=== PATIENT | male | born 1955 | race Caucasian/White ===

== ENCOUNTER 2020-06-08 11:07 | Outpatient (REF) | payer MEDICARE, SELFPAY ==
[2020-06-08 12:51] LABS: Prostate Specific Antigen < 0.05 ng/mL (<0.05-4.0)
== END 2020-06-08 11:08 | disposition home or self-care (01) ==
LOC: HO.LAB 11:07
PROVIDERS: PCP Internal Medicine; Visit Provider Urology
DX: Z12.5 Encounter for screening for malignant neoplasm of prostate (principal); C61 Malignant neoplasm of prostate
CPT/HCPCS: 36415; 84153

== ENCOUNTER 2020-08-18 11:42 | Outpatient (REF) | payer MEDICARE, SELFPAY ==
[2020-08-18 12:41] LABS: MANUAL DIFF FLAG NO
[2020-08-18 12:48] LABS: Basophils Percent Auto 0.5 % (0-2); Eosinophils Percent Auto 0.2 % (0-4); Hematocrit 53.3 % (42-52); Imm Gran Abs Auto 0.03 X10*3/uL (0.00-0.03); Imm Gran Pct Auto 0.5 % (0.0-0.4); Lymphocytes Absolute Auto 1.7 X10*3/uL (1.2-4.9); Lymphocytes Percent Auto 29.8 % (20-40); Mean Corpuscular HGB Conc 33.8 g/dl (31.0-36.0); Mean Corpuscular Hemoglobin 31.8 pg (27.0-33.0); Mean Corpuscular Volume 94.2 fL (80-98); Mean Platelet Volume 9.8 fL (9.4-12.4); Monocytes Absolute Auto 0.8 X10*3/uL (0.1-1.2); Monocytes Percent Auto 12.9 % (2-11); Neutrophils Absolute Auto 3.3 X10*3/uL (2.0-8.3); Neutrophils Percent Auto 56.1 % (45-73); Platelet Count 206 X10*3/uL (160-400); Red Blood Count 5.66 X10*6/uL (4.60-5.80); White Blood Count 5.8 X10*3/uL (4.8-10.8)
[2020-08-18 13:20] LABS: Alanine Aminotransferase 60 U/L (0-40); Albumin Level 4.4 g/dL (3.5-5.0); Alkaline Phosphatase 73 U/L (39-117); Anion Gap 16 (12-20); Aspartate Amino Transferase 32 U/L (5-37); Bilirubin Total 0.5 mg/dL (0.0-1.0); Blood Urea Nitrogen 19 mg/dL (9-16); Calcium 9.4 mg/dL (8.4-10.2); Carbon Dioxide 21 mmol/L (22-29); Chloride 109 mmol/L (96-108); Cholesterol 178 mg/dL; Estimated Glomerular Filt Rate 55; Glucose Fasting 106 mg/dL (60-99); HDL Cholesterol 39 mg/dL; LDL Cholesterol Calculated 122 mg/dl; Potassium 4.6 mmol/L (3.3-5.1); Sodium 141 mmol/L (135-145); Total Protein 7.7 g/dL (6.5-8.0); Triglycerides 86 mg/dL
[2020-08-18 13:42] LABS: Thyroid Stimulating Hormone 2.68 uIU/mL (0.32-4.0)
== END 2020-08-18 11:43 | disposition home or self-care (01) ==
LOC: HO.LAB 11:42
PROVIDERS: PCP Internal Medicine; Visit Provider Internal Medicine
DX: Z00.00 Encounter for general adult medical examination without abnormal findings (principal); E11.9 Type 2 diabetes mellitus without complications; E03.9 Hypothyroidism, unspecified
CPT/HCPCS: 36415; 80053; 80061; 84443; 85025

== ENCOUNTER 2021-08-21 10:29 | Outpatient (REF) | payer MEDICARE, SELFPAY ==
[2021-08-21 11:04] LABS: MANUAL DIFF FLAG NO
[2021-08-21 11:41] LABS: Basophils Percent Auto 0.6 % (0-2); Eosinophils Absolute Auto 0.1 X10*3/uL (0.0-0.4); Eosinophils Percent Auto 0.8 % (0-4); Hematocrit 53.8 % (42.0-52.0); Hemoglobin 17.8 g/dl (14.0-18.0); Imm Gran Abs Auto 0.03 X10*3/uL (0.00-0.03); Imm Gran Pct Auto 0.5 % (0.0-0.4); Lymphocytes Absolute Auto 2.3 X10*3/uL (1.2-4.9); Lymphocytes Percent Auto 36.6 % (20-40); Mean Corpuscular HGB Conc 33.1 g/dl (31.0-36.0); Mean Corpuscular Hemoglobin 31.3 pg (27.0-33.0); Mean Corpuscular Volume 94.6 fL (80.0-98.0); Mean Platelet Volume 9.9 fL (9.4-12.4); Monocytes Absolute Auto 0.6 X10*3/uL (0.1-1.2); Monocytes Percent Auto 10.2 % (2-11); Neutrophils Absolute Auto 3.2 x10*3/uL (2.0-8.3); Neutrophils Percent Auto 51.3 % (45-73); Platelet Count 211 X10*3/uL (160-400); Red Blood Count 5.69 X10*6/uL (4.60-5.80); Red Cell Distribution Width 12.4 % (11.0-16.0); White Blood Count 6.3 X10*3/uL (4.8-10.8)
[2021-08-21 12:29] LABS: Alanine Aminotransferase 57 U/L (0-40); Albumin Level 4.3 g/dL (3.5-5.0); Alkaline Phosphatase 76 U/L (39-117); Anion Gap 13 (12-20); Aspartate Amino Transferase 30 U/L (5-37); Bilirubin Total 0.8 mg/dL (0.0-1.0); Blood Urea Nitrogen 15 mg/dL (9-16); Calcium 9.4 mg/dL (8.4-10.2); Carbon Dioxide 23 mmol/L (22-29); Chloride 109 mmol/L (96-108); Cholesterol 196 mg/dL; Estimated Glomerular Filt Rate 53; Glucose Fasting 111 mg/dL (60-99); HDL Cholesterol 35 mg/dL; LDL Cholesterol Calculated 127 mg/dl; Total Protein 7.6 g/dL (6.5-8.0); Triglycerides 171 mg/dL
[2021-08-21 12:46] LABS: Potassium 4.5 mmol/L (3.3-5.1); Prostate Specific Antigen Scr < 0.05 ng/mL (<0.05-4.0); Sodium 142 mmol/L (135-145); Thyroid Stimulating Hormone 2.85 uIU/mL (0.32-4.0)
== END 2021-08-21 10:30 | disposition home or self-care (01) ==
LOC: HO.LAB 10:29
PROVIDERS: PCP Internal Medicine; Visit Provider Internal Medicine
DX: Z00.00 Encounter for general adult medical examination without abnormal findings (principal); Z13.0 Encounter for screening for diseases of the blood and blood-forming organs and certain disorders involving the immune mechanism; Z12.5 Encounter for screening for malignant neoplasm of prostate
CPT/HCPCS: 36415; 80053; 80061; 84153; 84443; 85025

== ENCOUNTER 2022-06-16 10:25 | Outpatient (REF) | payer MEDICARE, SELFPAY ==
--- NOTE | ~2022-06-16 | XR_ITS ---
EXAMINATION: XR ABDOMEN KUB CLINICAL INDICATION: Urinary tract calculi. COMPARISON: CT abdomen and pelvis 01/08/2009. TECHNIQUE: AP x2 views of the abdomen. FINDINGS: There is a faint rounded density possibly a calculus overlying upper medial left renal fossa 0.8 cm size. There is a calcified phlebolith lower right lateral hemipelvis. No visible ureteral calculi. The lung bases are clear. Bowel gas unremarkable. Surgical clips right upper quadrant abdomen from prior cholecystectomy. There are degenerative changes lumbosacral spine. XR/XR KUB IMPRESSION: -Question 8 mm calculus overlying upper medial left renal fossa.
== END 2022-06-16 10:26 | disposition home or self-care (01) ==
LOC: HO.XRAY 10:25
PROVIDERS: PCP Internal Medicine; Visit Provider Physician Assistant Surgical
DX: Z87.442 Personal history of urinary calculi (principal)
CPT/HCPCS: 74018

== ENCOUNTER 2023-02-16 11:03 | Outpatient (AMB) | payer MEDICARE, SELFPAY ==
--- NOTE | 2023-02-16 11:04 | A.OFFPC_ITS ---
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 Engineer Required: No Svp Business Development: Not Required per policy Accompanied by: Self / Same As Patient Allergies perfume Allergy (Unknown, Uncoded 02/16/23 11:05) hard to breath, watery eye Medication List - Last Reconciled 02/16/23 by Lefty Devlin MD No Known Home Meds Tobacco use date assessed: 02/16/23 Fall risk assessment: No Falls in past year Last assessed Fall Risk: 02/16/23 Dental Screening Dental Screen Date: 02/16/23 Did you have a dental visit in the last 12 months?: Yes Did you have a dental problem in the last 6 months where you did not have access to dental care?: No Was dental information given to patient?: Patient has dentist HPI Annual Physical HPI Details healthy [facility] Surgical History History of prostatectomy History of cholecystectomy Family History Father Medical history unknown Mother CVD (cardiovascular disease) Social History Housing: House Alcohol intake: never Patient Tobacco Use Status: Never used Tobacco e-Cigarette/Vaping Use: Never Used Second Hand Smoke Exposure: No service: No Current occupational status: retired Cognitive needs: No Hearing needs: No Vision needs: Yes Questionnaire PHQ-9 Over the last 2 weeks, how often have you been bothered by any of the following problems? 1. Little interest or pleasure in doing things: not at all 2. Feeling down, depressed, or hopeless: not at all 3. Trouble falling or staying asleep, or sleeping too much: not at all 4. Feeling tired or having little energy: not at all 5. Poor appetite or overeating: not at all 6. Feeling bad about yourself - or that you are a failure or have let yourself or your family down: not at all 7. Trouble concentrating on things, such as reading the newspaper or watching television: not at all 8. Moving or speaking so slowly that other people could have noticed. Or the opposite - being so fidgety or restless that you have been moving around a lot more than usual: not at all 9. Thoughts that you would be better off or of hurting yourself in some way: not at all Total score: 0 Depression Screening Interpretation: Negative 80438 - PHQ-9 Billing: Yes Source: Developed by Drs. Werner Alvarez, Diann Humphrey, Flaco Gomes and colleagues, with an educational polo from [employer]. Thrive Questionnaire Date Thrive assessed: 02/16/23 I am a: Patient What is your living situation today?: I have a steady place to live Within the past 12 months, did the food you bought not last and you didn't have the money to get more?: Never true Within the past 12 months, did you worry whether your food would run out before you got money to buy more?: Never true Do you have trouble paying for medicines?: No Do you have trouble getting transportation to medical appointments?: No Do you have trouble paying your heating and electricity bill?: No Do you have trouble taking care of your child, family member or friend?: No Do you have trouble with day-to-day activities such as bathing, preparing meals, shopping, managing finances, etc.?: No Are you currently unemployed and looking for a job?: No Are you interested in more education?: No Please select the resources that you would like help with: None AUDIT C Alcohol Use Questionnaire (AUDIT-C) 1. How often do you have a drink containing alcohol?: Never Total Score: 0 Score Reviewed/Action Taken: Yes WILY-7 AMB Questionnaire WILY-7 Date WILY - 7 assessed: 02/16/23 Feeling nervous, anxious, or on edge: 0 = Not at all Not being able to stop or control worryin = Not at all Worrying too much about different things: 0 = Not at all Trouble relaxin = Not at all Being so restless that it is hard to sit still: 0 = Not at all Becoming easily annoyed or irritable: 0 = Not at all Feeling afraid as if something awful might happen: 0 = Not at all Total WILY-7 score (0-4 normal; 5-9 mild; 10-14 moderate; 15-21 severe): 0 Source: Developed by Drs. Werner Alvarez, Diann Humphrey, Flaco Gomes and colleagues, with an educational polo from [employer]. WILY-7 Assessment Billing WILY-7 Assessment Tool: WILY-7 Assessment 77512 Review of Systems Const Denies chills, Denies fatigue, Denies headache(s) and Denies weight loss Eyes Denies change in vision, Denies diplopia and Denies eye pain ENT Denies vertigo, Denies dizziness, Denies headache(s) and Denies nasal discharge Card Denies chest pain, Denies rapid heart rate and Denies dyspnea on exertion Resp Denies chest congestion, Denies cough, Denies pain with cough and Denies dyspnea on exertion GI Denies abdominal pain, Denies hematochezia and Denies change in bowel habits Musc Denies myalgias, Denies arthralgias and Denies joint swelling Skin/Breast Denies lesions and Denies unusual bruising Neuro Denies vertigo, Denies dizziness, Denies headache(s) and Denies focal weakness Endo Denies fatigue Physical exam (Primary Care) Vital Signs: Last Vital Signs Pulse 62 02/16/23 11:05 BP 112/70 02/16/23 11:05 Pulse Ox 95 02/16/23 11:05 Oxygen Delivery Method Room Air 02/16/23 11:05 BMI result Body Mass Index 30.9 Tobacco/Smoking Status: Tobacco use Status Tobacco use date assessed 02/16/23 02/16/23 11:10 Patient Tobacco Use Status Never used Tobacco 02/16/23 11:10 e-Cigarette/Vaping Use Never Used 02/16/23 11:10 PHQ-9: PHQ-9 Score PHQ-9: Total score 0 02/16/23 11:10 Depression Screening Interpretation: Negative Thrive Assessment: Date of Thrive Assessment Date Thrive assessed 02/16/23 02/16/23 11:10 Advance Care Planning discussion: On file, no changes Forms completed: Health Care Proxy Const General: cooperative, healthy appearing and no acute distress Orientation/consciousness: oriented to person, oriented to place and oriented to time HENMT Head: Yes normal to inspection, Yes normocephalic and Yes atraumatic Mouth: Normal oral and palatal mucosa present and tongue normal Throat: Yes posterior oropharynx normal and Yes uvula midline Eyes General: appearance normal, both eyes and all related structures Neck Neck: Yes normal visual inspection, Yes full ROM and Yes no lymphadenopathy Thyroid: Thyroid normal Carotids: normal carotid upstroke Chest Chest palpation & inspection: normal inspection of the chest Resp Effort & Inspection: normal respiratory effort and able to speak in complete sentences Auscultation: clear to auscultation bilaterally Cardio Jugular venous distension: no JVD Palpation: normal PMI Rate: regular rate Rhythm: regular rhythm Heart sounds: S1 normal heart sound present and S2 normal heart sound present GI Inspection: Yes normal to inspection Palpation (GI): Soft to palpation and No hepatosplenomegaly present Auscultation: normal bowel sounds General: Yes no CVA tenderness Back/Spine/Pelvis Back: no CVA tenderness Skin General skin exam: no rashes or lesions noted Neuro General: oriented to person, oriented to place and oriented to time Extrem General: Yes normal to inspection and Yes full ROM Assessment and Plan Assessment & Plan (1) Physical exam: Code(s): Z00.00 - Encounter for general adult medical examination without abnormal findings Plan: stable; do labs Orders: Orders Thyroid Stimulating Hormone Today E03.9 - Hypothyroidism, unspecified Complete Blood Count Auto Diff Today D64.9 - Anemia, unspecified Lipid Panel Today E78.5 - Hyperlipidemia, unspecified Comprehensive [place]. Panel Fast Today N28.9 - Disorder of kidney and ureter, unspecified Coding Level of Care Code Est Pt Prev Care >65y(93285) Diagnoses Physical exam Z00.00 Additional Codes WILY-7 Assessment Billing - WILY-7 Assessment Tool: WILY-7 Assessment 42677 ([id number]) Vital Signs *Quality* - Advance Care Planning discussion: On file, no changes ([id number])
[2023-02-16 11:05] VITALS: BP 112/70; PULSE 62; O2SAT 95; BMI 30.9
== END 2023-02-16 11:17 | disposition home or self-care (01) ==
PROVIDERS: PCP Internal Medicine; Visit Provider Internal Medicine
DX: Z00.00 Encounter for general adult medical examination without abnormal findings (principal)
CPT/HCPCS: 1123F; 99397

== ENCOUNTER 2023-02-20 11:17 | Outpatient (REF) | payer MEDICARE, SELFPAY ==
[2023-02-20 11:47] LABS: MANUAL DIFF FLAG NO
[2023-02-20 12:01] LABS: Basophils Percent Auto 0.5 % (0-2); Eosinophils Absolute Auto 0.1 X10*3/uL (0.0-0.4); Eosinophils Percent Auto 0.9 % (0-4); Hematocrit 51.1 % (42.0-52.0); Hemoglobin 17.2 g/dl (14.0-18.0); Imm Gran Abs Auto 0.05 X10*3/uL (0.00-0.03); Imm Gran Pct Auto 0.9 % (0.0-0.4); Lymphocytes Absolute Auto 2.3 X10*3/uL (1.2-4.9); Lymphocytes Percent Auto 41.1 % (20-40); Mean Corpuscular HGB Conc 33.7 g/dl (31.0-36.0); Mean Corpuscular Hemoglobin 31.3 pg (27.0-33.0); Mean Corpuscular Volume 93.1 fL (80.0-98.0); Mean Platelet Volume 9.6 fL (9.4-12.4); Monocytes Absolute Auto 0.7 X10*3/uL (0.1-1.2); Monocytes Percent Auto 12.4 % (2-11); Neutrophils Absolute Auto 2.4 x10*3/uL (2.0-8.3); Neutrophils Percent Auto 44.2 % (45-73); Platelet Count 208 X10*3/uL (160-400); Red Blood Count 5.49 X10*6/uL (4.60-5.80); Red Cell Distribution Width 12.4 % (11.0-16.0); White Blood Count 5.5 X10*3/uL (4.8-10.8)
[2023-02-20 13:19] LABS: Alanine Aminotransferase 52 U/L (0-40); Albumin Level 4.2 g/dL (3.5-5.0); Alkaline Phosphatase 66 U/L (39-117); Anion Gap 14 (12-20); Aspartate Amino Transferase 27 U/L (5-37); Bilirubin Total 0.6 mg/dL (0.0-1.0); Blood Urea Nitrogen 23 mg/dL (9-16); Calcium 9.3 mg/dL (8.4-10.2); Carbon Dioxide 21 mmol/L (22-29); Chloride 109 mmol/L (96-108); Cholesterol 174 mg/dL (<200); Estimated Glomerular Filt Rate > 60; Glucose Fasting 123 mg/dL (60-99); HDL Cholesterol 37 mg/dL (>40); LDL Cholesterol Calculated 113 mg/dL (<100); Sodium 140 mmol/L (135-145); Total Protein 7.6 g/dL (6.5-8.0); Triglycerides 124 mg/dL (<150)
[2023-02-20 13:37] LABS: Thyroid Stimulating Hormone 2.97 uIU/mL (0.32-4.0)
== END 2023-02-20 11:18 | disposition home or self-care (01) ==
LOC: HO.LAB 11:17
PROVIDERS: PCP Internal Medicine; Visit Provider Internal Medicine
DX: E78.5 Hyperlipidemia, unspecified (principal); E03.9 Hypothyroidism, unspecified; N28.9 Disorder of kidney and ureter, unspecified; D64.9 Anemia, unspecified
CPT/HCPCS: 36415; 80053; 80061; 84443; 85025

== ENCOUNTER 2023-08-24 09:15 | Outpatient (AMB) | payer MEDICARE, SELFPAY ==
[2023-08-24 09:17] VITALS: BP 110/60; PULSE 65; O2SAT 95; BMI 30.7
--- NOTE | 2023-08-24 09:17 | MHC.PC.OV ---
Vital Signs 08/24/23 09:17 Height 5 ft 7 in Weight 196 lb BMI 30.7 BP 110/60 Blood Pressure Location Lt brachial Position Sitting Pulse 65 Pulse Source Pulse Oximeter Pulse Oximetry (%) 95 Oxygen Delivery Method Room Air Intake Visit Reasons: bump in buttocks Cnc Supervisor Required: No Criminal Investigator Customs: Not Required per policy Accompanied by: Self / Same As Patient Allergies perfume Allergy (Unknown, Uncoded 08/24/23 09:18) hard to breath, watery eye Medication List - Last Reconciled 08/24/23 by Lefty Devlin MD No Known Home Meds Tobacco use date assessed: 08/24/23 Fall risk assessment: 1 Fall in past year Last assessed Fall Risk: 08/24/23 Dental Screening Dental Screen Date: 08/24/23 Did you have a dental visit in the last 12 months?: Yes Did you have a dental problem in the last 6 months where you did not have access to dental care?: No Was dental information given to patient?: Patient has dentist HPI bump in buttocks HPI Details has an external hemorrhoid PFSH Surgical History History of prostatectomy History of cholecystectomy Family History (Updated 08/24/23 @ 09:27 by ROBYN Vital) Father Medical history unknown Mother CVD (cardiovascular disease) Social History Housing: House Alcohol intake: never Patient Tobacco Use Status: Never used Tobacco e-Cigarette/Vaping Use: Never Used Second Hand Smoke Exposure: No service: No Current occupational status: retired Cognitive needs: No Hearing needs: No Vision needs: Yes (glasses) Questionnaire PHQ-9 Over the last 2 weeks, how often have you been bothered by any of the following problems? 1. Little interest or pleasure in doing things: not at all 2. Feeling down, depressed, or hopeless: not at all 3. Trouble falling or staying asleep, or sleeping too much: not at all 4. Feeling tired or having little energy: not at all 5. Poor appetite or overeating: not at all 6. Feeling bad about yourself - or that you are a failure or have let yourself or your family down: not at all 7. Trouble concentrating on things, such as reading the newspaper or watching television: not at all 8. Moving or speaking so slowly that other people could have noticed. Or the opposite - being so fidgety or restless that you have been moving around a lot more than usual: not at all 9. Thoughts that you would be better off or of hurting yourself in some way: not at all Total score: 0 Depression Screening Interpretation: Negative Depression Screening Done: Yes 71096 - PHQ-9 Billing: Yes Source: Developed by Drs. Werner Alvarez, Diann Humphrey, Flaco Gomes and colleagues, with an educational polo from [employer]. Thrive Questionnaire Date Thrive assessed: 08/24/23 I am a: Patient What is your living situation today?: I have a steady place to live Within the past 12 months, did the food you bought not last and you didn't have the money to get more?: Never true Within the past 12 months, did you worry whether your food would run out before you got money to buy more?: Never true Do you have trouble paying for medicines?: No Do you have trouble getting transportation to medical appointments?: No Do you have trouble paying your heating and electricity bill?: No Do you have trouble taking care of your child, family member or friend?: No Do you have trouble with day-to-day activities such as bathing, preparing meals, shopping, managing finances, etc.?: No Are you currently unemployed and looking for a job?: No Are you interested in more education?: No Please select the resources that you would like help with: None THRIVE Score: 0 AUDIT C Alcohol Use Questionnaire (AUDIT-C) 1. How often do you have a drink containing alcohol?: Never Total Score: 0 Score Reviewed/Action Taken: Yes WILY-7 AMB Questionnaire WILY-7 Date WILY - 7 assessed: 08/24/23 Feeling nervous, anxious, or on edge: 0 = Not at all Not being able to stop or control worryin = Not at all Worrying too much about different things: 0 = Not at all Trouble relaxin = Not at all Being so restless that it is hard to sit still: 0 = Not at all Becoming easily annoyed or irritable: 0 = Not at all Feeling afraid as if something awful might happen: 0 = Not at all Total WILY-7 score (0-4 normal; 5-9 mild; 10-14 moderate; 15-21 severe): 0 Source: Developed by Drs. Werner Alvarez, Diann Humphrey, Flaco Gomes and colleagues, with an educational polo from [employer]. Review of Systems Const Denies chills, Denies headache(s) and Denies weight loss ENT Denies headache(s) Card Denies chest pain, Denies syncope, Denies irregular heart rhythm and Denies dyspnea Resp Denies chest congestion, Denies cough and Denies dyspnea GI Denies abdominal pain, Denies change in stool character, Denies nausea and Denies vomiting Musc Denies deformity and Denies joint swelling Neuro Denies syncope and Denies headache(s) Physical exam (Primary Care) Vital Signs: Last Vital Signs Pulse 65 08/24/23 09:17 BP 110/60 08/24/23 09:17 Pulse Ox 95 08/24/23 09:17 Oxygen Delivery Method Room Air 08/24/23 09:17 BMI result Body Mass Index 30.7 Tobacco/Smoking Status: Tobacco use Status Tobacco use date assessed 08/24/23 08/24/23 09:18 Patient Tobacco Use Status Never used Tobacco 08/24/23 09:18 e-Cigarette/Vaping Use Never Used 08/24/23 09:18 PHQ-9: PHQ-9 Score PHQ-9: Total score 0 08/24/23 09:40 Depression Screening Interpretation: Negative Thrive Assessment: Date of Thrive Assessment Date Thrive assessed 08/24/23 08/24/23 09:19 Const General: cooperative, comfortable, no acute distress and alert Neck Neck: Yes no lymphadenopathy Thyroid: Thyroid normal Resp Effort & Inspection: normal respiratory effort Auscultation: clear to auscultation bilaterally Percussion: percussion normal Cardio Jugular venous distension: no JVD Palpation: normal PMI Rate: regular rate Rhythm: regular rhythm Heart sounds: S1 normal heart sound present and S2 normal heart sound present GI Other: external hemorrhoid Inspection: Yes normal to inspection Palpation (GI): No hepatosplenomegaly present Skin General skin exam: no rashes or lesions noted Extrem General: Yes no clubbing, cyanosis or edema Assessment and Plan Assessment & Plan (1) External hemorrhoid: Code(s): K64.4 - Residual hemorrhoidal skin tags Plan: ref surg Orders: Referrals General Surgery Referral K64.4 - Residual hemorrhoidal skin tags Coding Level of Care Code Est Pt Level 3 (77923) Diagnoses External hemorrhoid K64.4
== END 2023-08-24 09:40 | disposition home or self-care (01) ==
PROVIDERS: PCP Internal Medicine; Visit Provider Internal Medicine
DX: K64.4 Residual hemorrhoidal skin tags (principal)
CPT/HCPCS: 99213

== ENCOUNTER 2023-09-13 10:46 | Outpatient (AMB) | payer MEDICARE, SELFPAY ==
--- NOTE | 2023-09-13 11:05 | MHC.OFFVIS ---
Intake Vital Signs 09/13/23 11:06 Height 5 ft 7 in Weight 196 lb BMI 30.7 Intake Visit Reasons: External hemorrhoid Intake Note: This patient presents for an assessment for External hemorrhoid. Pt c/o; reports about one month ago after having a bowel movements he wiped himself and he felt several lumps, reports no rectal bleeding or pain. 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 He says that about 4-5 weeks ago, he did notice a lump outside his anus. He says that this was not tender though this was uncomfortable whenever he was wiping. This had persisted so he told his primary care physician and was referred to me He denies any bleeding or significant tenderness at this time. He denies being constipated. [facility] Surgical History History of prostatectomy History of cholecystectomy Family History Father Medical history unknown Mother CVD (cardiovascular disease) Social History Housing: House Alcohol intake: never Patient Tobacco Use Status: Never used Tobacco e-Cigarette/Vaping Use: Never Used Second Hand Smoke Exposure: No service: No Current occupational status: retired Cognitive needs: No Hearing needs: No Vision needs: Yes (glasses) Review of Systems Const Denies chills and Denies fever(s) Card Denies chest pain, Denies dyspnea and Denies dyspnea on exertion Resp Denies cough, Denies dyspnea and Denies dyspnea on exertion GI Denies hematochezia and Denies change in bowel habits Denies hematuria and Denies difficulty urinating Musc Denies back pain and Denies limited range of motion Neuro Denies focal weakness and Denies convulsions Psych Denies depression and Denies mood swings Physical Exam Vital Signs: BMI result Body Mass Index 30.7 Const General: comfortable and no acute distress Orientation/consciousness: patient oriented x3 Neck Neck: Yes no lymphadenopathy Resp Auscultation: clear to auscultation bilaterally Cardio Rhythm: regular rhythm GI Other: Rectal exam shows what appears to be a thrombosed external hemorrhoid on the right, but 2 cm, smooth, well-defined, nontender Palpation (GI): Soft to palpation, nontender and no guarding Neuro General: patient oriented x3 Assessment & Plan Assessment & Plan (1) External hemorrhoid: Code(s): K64.4 - Residual hemorrhoidal skin tags Plan: He has what appears to be a thrombosed external hemorrhoid. This is currently not bothering him. He says that he just feels that it is there whenever he is wiping. He denies any pain or tenderness I told him that we will allow this to self resorb. I would see him again in about a month and re-examine him. If this is bothering him at that time, we can discuss the option of hemorrhoidectomy. He is comfortable with the plan. Coding Level of Care Code New Pt Level 3 (57718) Diagnoses External hemorrhoid K64.4
[2023-09-13 11:06] VITALS: BMI 30.7
== END 2023-09-13 11:40 | disposition home or self-care (01) ==
PROVIDERS: PCP Internal Medicine; Referring Provider Internal Medicine; Visit Provider Surgery
DX: K64.4 Residual hemorrhoidal skin tags (principal)
CPT/HCPCS: 99203

== ENCOUNTER → 2023-09-13 10:46 | Outpatient (BNVA) | payer MEDICARE, SELFPAY | PROVIDERS: PCP Internal Medicine; Referring Provider Internal Medicine; Visit Provider Surgery | DX: K64.4 Residual hemorrhoidal skin tags (principal) | CPT/HCPCS: 99202 ==

== ENCOUNTER 2023-10-25 09:57 | Outpatient (AMB) | payer MEDICARE, SELFPAY ==
[2023-10-25 10:09] VITALS: BP 119/64; PULSE 66; BMI 30.5
--- NOTE | 2023-10-25 10:09 | A.OFFVIS_ITS ---
Vital Signs 10/25/23 10:09 Height 5 ft 7 in Weight 195 lb BMI 30.5 BP 119/64 Blood Pressure Location Rt brachial Position Sitting Pulse 66 Intake Visit Reasons: 6 wk f/u External hemorrhoid Intake Note: This patient presents for a six month follow-up for External hemorrhoid. Pt c/o; reports has not noticed rectal bleeding for the last several weeks, reports still can feel the hemorrhoid. Hand Chain Maker Required: No Accompanied by: Self / Same As Patient Allergies perfume Allergy (Unknown, Uncoded 10/25/23 10:20) hard to breath, watery eye Medication List - Last Reconciled 10/25/23 by Mustapha Lorenz MD psyllium husk (Metamucil) 1 tsp PO DAILY HPI HPI 6 wk f/u External hemorrhoid: Details: He is here for follow-up for a thrombosed external hemorrhoid. I would seen him in August, for this He says he feels better although he still feels the lump inside his anus. He says that this smaller. He says that the bleeding has resolved. He denies any significant pain. [facility] Surgical History History of prostatectomy History of cholecystectomy Family History Father Medical history unknown Mother CVD (cardiovascular disease) Social History Housing: House Alcohol intake: never Patient Tobacco Use Status: Never used Tobacco e-Cigarette/Vaping Use: Never Used Second Hand Smoke Exposure: No service: No Current occupational status: retired Cognitive needs: No Hearing needs: No Vision needs: Yes (glasses) Review of Systems Const Denies chills and Denies fever(s) Card Denies chest pain, Denies dyspnea and Denies dyspnea on exertion Resp Denies cough, Denies dyspnea and Denies dyspnea on exertion GI Denies hematochezia and Denies change in bowel habits Denies hematuria and Denies difficulty urinating Musc Denies back pain and Denies limited range of motion Neuro Denies focal weakness and Denies convulsions Psych Denies depression and Denies mood swings Physical Exam Vital Signs: Last Vital Signs Pulse 66 10/25/23 10:09 BP 119/64 10/25/23 10:09 BMI result Body Mass Index 30.5 Const General: comfortable and no acute distress Resp Effort & Inspection: normal respiratory effort Cardio Rate: regular rate GI Other: Rectal shows external hemorrhoid, on the right anal verge much smaller than previously seen, nontender Palpation (GI): Soft to palpation and not firm Assessment & Plan Assessment & Plan (1) External hemorrhoid: Code(s): K64.4 - Residual hemorrhoidal skin tags Category: Medical Plan: He has a thrombosed hemorrhoid and this seems much improved. I advised him on taking fiber supplements so I will see him for prescription for Metamucil. I will see him again in about 2 months to see how is doing. He has comfortable with the plan Medications: New psyllium husk (Metamucil) mix into at least 4 oz water or juice before administering 1 tsp PO DAILY 660 grams 0RF Coding Level of Care Code Est Pt Level 2 (70680) Diagnoses External hemorrhoid K64.4
== END 2023-10-25 10:37 | disposition home or self-care (01) ==
PROVIDERS: PCP Internal Medicine; Visit Provider Surgery
DX: K64.4 Residual hemorrhoidal skin tags (principal)
CPT/HCPCS: 99212

== ENCOUNTER → 2023-10-25 09:57 | Outpatient (BNVA) | payer MEDICARE, SELFPAY | PROVIDERS: PCP Internal Medicine; Visit Provider Surgery | DX: K64.4 Residual hemorrhoidal skin tags (principal) | CPT/HCPCS: 99212 ==

== ENCOUNTER 2023-12-20 10:00 | Outpatient (AMB) | payer MEDICARE, SELFPAY ==
[2023-12-20 10:02] VITALS: BP 135/79; PULSE 72; BMI 30.9
--- NOTE | 2023-12-20 10:02 | MHC.OFFVIS ---
Vital Signs 12/20/23 10:02 Height 5 ft 7 in Weight 197 lb BMI 30.9 BP 135/79 Blood Pressure Location Rt brachial Position Sitting Pulse 72 Intake Visit Reasons: 2 month f/u External hemorrhoid Intake Note: This patient presents for 2 month follow-up for external hemorrhoid. Patient c/o; reports no complaints at this time. Security Field Supervisor Required: No Accompanied by: Self / Same As Patient Allergies perfume Allergy (Unknown, Uncoded 12/20/23 10:08) hard to breath, watery eye Medication List - Last Reconciled 12/20/23 by Mustapha Lorenz MD psyllium husk (Metamucil) 1 tsp PO DAILY HPI HPI 2 month f/u External hemorrhoid: Details: He is here for follow-up for a recently thrombosed hemorrhoid. He says he feels much better. He says he does not feel the hemorrhoid anymore. He denies any significant complaints with regards to his rectum and anus. [facility] Surgical History History of prostatectomy History of cholecystectomy Family History Father Medical history unknown Mother CVD (cardiovascular disease) Social History Housing: House Alcohol intake: never Patient Tobacco Use Status: Never used Tobacco e-Cigarette/Vaping Use: Never Used Second Hand Smoke Exposure: No service: No Current occupational status: retired Cognitive needs: No Hearing needs: No Vision needs: Yes (glasses) Review of Systems Const Denies chills and Denies fever(s) Card Denies chest pain GI Denies abdominal pain Physical Exam Vital Signs: Last Vital Signs Pulse 72 12/20/23 10:02 BP 135/79 12/20/23 10:02 BMI result Body Mass Index 30.9 Const General: comfortable and no acute distress Resp Effort & Inspection: normal respiratory effort GI Other: Rectal exam shows no residual thrombosed hemorrhoid, some small external hemorrhoids on the left, no tenderness Assessment & Plan Assessment & Plan (1) External hemorrhoid: Code(s): K64.4 - Residual hemorrhoidal skin tags Category: Medical Plan: He had a recent thrombosis and this seems to have resolved. He denies any complaints with regards to his hemorrhoids at this time. I told him to avoid straining and constipation. He can follow up in the office on a p.r.n. basis from here on. Coding Level of Care Code Est Pt Level 2 (79431) Diagnoses External hemorrhoid K64.4
== END 2023-12-20 10:18 | disposition home or self-care (01) ==
PROVIDERS: PCP Internal Medicine; Visit Provider Surgery
DX: K64.4 Residual hemorrhoidal skin tags (principal)
CPT/HCPCS: 99212

== ENCOUNTER → 2023-12-20 10:00 | Outpatient (BNVA) | payer MEDICARE, SELFPAY | PROVIDERS: PCP Internal Medicine; Visit Provider Surgery | DX: K64.4 Residual hemorrhoidal skin tags (principal) | CPT/HCPCS: 99212 ==

== ENCOUNTER 2024-02-28 13:01 | Outpatient (AMB) | payer MEDICARE, SELFPAY ==
[2024-02-28 13:02] VITALS: BP 140/72; PULSE 71; O2SAT 94; BMI 30.4
--- NOTE | 2024-02-28 13:02 | MHC.PC.OV ---
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 No injury.) Last assessed Fall Risk: 02/28/24 Dental Screening Dental Screen Date: 08/24/23 HPI annual exam HPI Details healthy [facility] Surgical History History of prostatectomy History of cholecystectomy Family History Father Medical history unknown Mother CVD (cardiovascular disease) Social History Housing: House Alcohol intake: never Patient Tobacco Use Status: Never used Tobacco Tobacco use type: Cigarette e-Cigarette/Vaping Use: Never Used Second Hand Smoke Exposure: No service: No Current occupational status: retired Cognitive needs: No Hearing needs: No Vision needs: Yes (glasses) Questionnaire PHQ-9 Over the last 2 weeks, how often have you been bothered by any of the following problems? 1. Little interest or pleasure in doing things: not at all 2. Feeling down, depressed, or hopeless: not at all 3. Trouble falling or staying asleep, or sleeping too much: not at all 4. Feeling tired or having little energy: not at all 5. Poor appetite or overeating: not at all 6. Feeling bad about yourself - or that you are a failure or have let yourself or your family down: not at all 7. Trouble concentrating on things, such as reading the newspaper or watching television: not at all 8. Moving or speaking so slowly that other people could have noticed. Or the opposite - being so fidgety or restless that you have been moving around a lot more than usual: not at all 9. Thoughts that you would be better off or of hurting yourself in some way: not at all Total score: 0 Depression Screening Interpretation: Negative Depression Screening Done: Yes 81268 - PHQ-9 Billing: Yes Source: Developed by Drs. Werner Alvarez, Diann Humphrey, Flaco Gomes and colleagues, with an educational polo from [employer]. Thrive Questionnaire Date Thrive assessed: 02/28/24 I am a: Patient AUDIT C Alcohol Use Questionnaire (AUDIT-C) 1. How often do you have a drink containing alcohol?: Never Total Score: 0 Score Reviewed/Action Taken: Yes WILY-7 AMB Questionnaire WILY-7 Date WILY - 7 assessed: 08/24/23 Source: Developed by Drs. Werner Alvarez, Diann Humphrey, Flaco Gomes and colleagues, with an educational polo from [employer]. Review of Systems Const Denies chills, Denies fatigue, Denies headache(s) and Denies weight loss Eyes Denies change in vision, Denies diplopia and Denies eye pain ENT Denies vertigo, Denies dizziness, Denies headache(s) and Denies nasal discharge Card Denies chest pain, Denies rapid heart rate and Denies dyspnea on exertion Resp Denies chest congestion, Denies cough, Denies pain with cough and Denies dyspnea on exertion GI Denies abdominal pain, Denies hematochezia and Denies change in bowel habits Musc Denies myalgias, Denies arthralgias and Denies joint swelling Skin/Breast Denies lesions and Denies unusual bruising Neuro Denies vertigo, Denies dizziness, Denies headache(s) and Denies focal weakness Endo Denies fatigue Physical exam (Primary Care) Vital Signs: Last Vital Signs Pulse 71 02/28/24 13:02 BP 140/72 H 02/28/24 13:02 Pulse Ox 94 02/28/24 13:02 Oxygen Delivery Method Room Air 02/28/24 13:02 BMI result Body Mass Index 30.4 Tobacco/Smoking Status: Tobacco use Status Tobacco use date assessed 08/24/23 02/28/24 13:08 Patient Tobacco Use Status Never used Tobacco 02/28/24 13:08 Tobacco use type Cigarette 02/28/24 13:08 e-Cigarette/Vaping Use Never Used 02/28/24 13:08 PHQ-9: PHQ-9 Score PHQ-9: Total score 0 02/28/24 13:08 Depression Screening Interpretation: Negative Thrive Assessment: Date of Thrive Assessment Date Thrive assessed 02/28/24 02/28/24 13:08 Const General: cooperative, healthy appearing and no acute distress Orientation/consciousness: oriented to person, oriented to place and oriented to time HENMT Head: Yes normal to inspection, Yes normocephalic and Yes atraumatic Mouth: Normal oral and palatal mucosa present and tongue normal Throat: Yes posterior oropharynx normal and Yes uvula midline Eyes General: appearance normal, both eyes and all related structures Neck Neck: Yes normal visual inspection, Yes full ROM and Yes no lymphadenopathy Thyroid: Thyroid normal Carotids: normal carotid upstroke Chest Chest palpation & inspection: normal inspection of the chest Resp Effort & Inspection: normal respiratory effort and able to speak in complete sentences Auscultation: clear to auscultation bilaterally Cardio Jugular venous distension: no JVD Palpation: normal PMI Rate: regular rate Rhythm: regular rhythm Heart sounds: S1 normal heart sound present and S2 normal heart sound present GI Inspection: Yes normal to inspection Palpation (GI): Soft to palpation and No hepatosplenomegaly present Auscultation: normal bowel sounds General: Yes no CVA tenderness Back/Spine/Pelvis Back: no CVA tenderness Skin General skin exam: no rashes or lesions noted Neuro General: oriented to person, oriented to place and oriented to time Extrem General: Yes normal to inspection and Yes full ROM Coding Level of Care Code Est Pt Prev Care >65y(70879) Diagnoses Physical exam Z00.00 Assessment & Plan Assessment & Plan (1) Physical exam: Code(s): Z00.00 - Encounter for general adult medical examination without abnormal findings Category: Medical Plan: healthy; do labs Orders: Orders Lipid Panel Today Z13.220 - Encounter for screening for lipoid disorders XR shoulder LT min 2V Today M25.519 - Pain in unspecified shoulder Thyroid Stimulating Hormone Today Z13.29 - Encounter for screening for other suspected endocrine disorder Complete Blood Count Auto Diff Today Z13.0 - Encounter for screening for diseases of the blood and blood-forming organs and certain disorders involving the immune mechanism Comprehensive [place]. Panel Fast Today Z13.9 - Encounter for screening, unspecified
== END 2024-02-28 13:21 | disposition home or self-care (01) ==
PROVIDERS: PCP Internal Medicine; Visit Provider Internal Medicine
DX: Z00.00 Encounter for general adult medical examination without abnormal findings (principal)

== ENCOUNTER → 2024-02-28 13:01 | Outpatient (BNVA) | payer MEDICARE, SELFPAY | PROVIDERS: PCP Internal Medicine; Visit Provider Internal Medicine | DX: Z00.00 Encounter for general adult medical examination without abnormal findings (principal) | CPT/HCPCS: 96127; 99397 ==

== ENCOUNTER 2024-02-29 12:55 | Outpatient (REF) | payer MEDICARE, SELFPAY ==
--- NOTE | ~2024-02-29 | XR_ITS ---
EXAMINATION: XR SHOULDER LEFT 3 VIEWS CLINICAL INFORMATION: Pain in unspecified shoulder M25.519. Pain in left shoulder. COMPARISON: None TECHNIQUE: AP external rotation, Grashey, and scapular Y views of the left shoulder. FINDINGS: Visualized portion of the proximal left humerus demonstrate no fracture. Humeral head demonstrates good articulation with the glenoid fossa. There are only minimal degenerative changes of the glenohumeral and acromioclavicular joints. Visualized left-sided ribs and lung parenchyma are unremarkable. IMPRESSION: Minimal degenerative changes of the left shoulder. Electronically signed by: Carmine Riddle MD 05/09/2024 08:40 AM [facility]
[2024-02-29 13:22] LABS: MANUAL DIFF FLAG NO
[2024-02-29 14:11] LABS: Basophils Percent Auto 0.6 % (0-2); Eosinophils Absolute Auto 0.1 X10*3/uL (0.0-0.4); Hematocrit 49.1 % (42.0-52.0); Hemoglobin 16.8 g/dl (14.0-18.0); Imm Gran Abs Auto 0.04 X10*3/uL (0.00-0.03); Imm Gran Pct Auto 0.6 % (0.0-0.4); Lymphocytes Absolute Auto 2.1 X10*3/uL (1.2-4.9); Lymphocytes Percent Auto 33.6 % (20-40); Mean Corpuscular HGB Conc 34.2 g/dl (31.0-36.0); Mean Corpuscular Hemoglobin 31.5 pg (27.0-33.0); Mean Corpuscular Volume 91.9 fL (80.0-98.0); Mean Platelet Volume 9.5 fL (9.4-12.4); Monocytes Absolute Auto 0.8 X10*3/uL (0.1-1.2); Monocytes Percent Auto 11.9 % (2-11); Neutrophils Absolute Auto 3.3 x10*3/uL (2.0-8.3); Neutrophils Percent Auto 52.3 % (45-73); Platelet Count 224 X10*3/uL (160-400); Red Blood Count 5.34 X10*6/uL (4.60-5.80); Red Cell Distribution Width 12.7 % (11.0-16.0); White Blood Count 6.3 X10*3/uL (4.8-10.8)
[2024-02-29 14:48] LABS: Alanine Aminotransferase 51 U/L (0-40); Albumin Level 4.3 g/dL (3.5-5.0); Alkaline Phosphatase 75 U/L (39-117); Anion Gap 10 (12-20); Aspartate Amino Transferase 27 U/L (5-37); Blood Urea Nitrogen 15 mg/dL (9-16); Calcium 9.7 mg/dL (8.4-10.2); Carbon Dioxide 24 mmol/L (22-29); Chloride 110 mmol/L (96-108); Cholesterol 164 mg/dL (<200); Estimated Glomerular Filt Rate > 60; Glucose Fasting 107 mg/dL (60-99); HDL Cholesterol 37 mg/dL (>40); LDL Cholesterol Calculated 95 mg/dL (<100); Potassium 4.1 mmol/L (3.3-5.1); Sodium 140 mmol/L (135-145); Total Protein 7.7 g/dL (6.5-8.0); Triglycerides 160 mg/dL (<150)
[2024-02-29 15:05] LABS: Thyroid Stimulating Hormone 2.52 uIU/mL (0.32-4.0)
== END 2024-02-29 12:56 | disposition home or self-care (01) ==
LOC: HO.XRAY 12:55
PROVIDERS: PCP Internal Medicine; Visit Provider Internal Medicine
DX: Z13.29 Encounter for screening for other suspected endocrine disorder (principal); Z13.9 Encounter for screening, unspecified; Z13.220 Encounter for screening for lipoid disorders; Z13.0 Encounter for screening for diseases of the blood and blood-forming organs and certain disorders involving the immune mechanism; M25.519 Pain in unspecified shoulder
CPT/HCPCS: 36415; 73030; 80053; 80061; 84443; 85025

== ENCOUNTER → 2024-03-04 09:49 | Outpatient (BNVA) | payer MEDICARE, SELFPAY | PROVIDERS: PCP Internal Medicine ==

== ENCOUNTER 2025-03-03 14:11 | Outpatient (AMB) | payer MEDICARE, SELFPAY ==
--- NOTE | 2025-03-03 14:14 | A.OFFPC_ITS ---
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 Required: No Accompanied by: Self / Same As Patient Allergies perfume Allergy (Unknown, Uncoded 03/03/25 14:59) hard to breath, watery eye Medication List - Last Reconciled 03/03/25 by JAY Lora psyllium husk (Metamucil) 1 tsp PO DAILY Tobacco use date assessed: 03/03/25 Fall risk assessment: 1 Fall in past year Last assessed Fall Risk: 03/03/25 Dental Screening Dental Screen Date: 03/03/25 Did you have a dental visit in the last 12 months?: Yes Did you have a dental problem in the last 6 months where you did not have access to dental care?: No Was dental information given to patient?: Patient has dentist HPI annual exam/kathy DR Devlin HPI Details The patient is here for annual physical and to transition care from Dr. Devlin, who retired Dentist: up to date, reports that he had partial and the top Eye: due for eye exam, appoint scheduled [place]: Right: Left: Corrected vision: yes, glasses, reports that he did lasiks surgery couple years ago, 2015 STI screening: Colonoscopy: Graciela Conrad, he due to repeat 2025 Pap Smer:n/a PHQ-9: Flu: will get some soon COVID: x4 Tdap:2016 Diet:regular Exercise:walks frequently The patient is a 69-year-old male presenting for a wellness visit and management of chronic conditions. The patient reports a history of a herniated disc, which was identified as a bulging disc in the neck area. He has not seen a coverage specialist but has consulted a chiropractor for management. The patient experiences left shoulder pain, which he associates with a previous fall during the winter. He reports that the pain is not severe and does not limit his daily activities. The patient has been monitoring his prostate health with Dr. Gunter and is due for a follow-up next year. He reports elevated liver enzymes and triglycerides, which were noted in previous blood work. He has been advised to reduce intake of sweet and processed foods and to consider taking fish oil supplements. The patient maintains regular eye exams and is due for his next appointment around . He has undergone a colonoscopy in the past, which was normal, and is due for another in 2025. The patient has received four to five COVID-19 vaccinations and plans to get another soon. [facility] Medical History (Updated 03/05/25 @ 07:49 by JAY Lora) Herniated disc, cervical Surgical History History of prostatectomy History of cholecystectomy Family History Father Medical history unknown Mother CVD (cardiovascular disease) Social History Housing: House Alcohol intake: never Patient Tobacco Use Status: Never used Tobacco Tobacco use type: Cigarette e-Cigarette/Vaping Use: Never Used Second Hand Smoke Exposure: No service: No Current occupational status: retired Cognitive needs: No Hearing needs: No Vision needs: Yes (glasses) Questionnaire PHQ-9 Over the last 2 weeks, how often have you been bothered by any of the following problems? 1. Little interest or pleasure in doing things: not at all 2. Feeling down, depressed, or hopeless: not at all 3. Trouble falling or staying asleep, or sleeping too much: not at all 4. Feeling tired or having little energy: not at all 5. Poor appetite or overeating: not at all 6. Feeling bad about yourself - or that you are a failure or have let yourself or your family down: not at all 7. Trouble concentrating on things, such as reading the newspaper or watching television: not at all 8. Moving or speaking so slowly that other people could have noticed. Or the opposite - being so fidgety or restless that you have been moving around a lot more than usual: not at all 9. Thoughts that you would be better off or of hurting yourself in some way: not at all Total score: 0 Source: Developed by Drs. Werner Alvarez, Flaco Graham and colleagues, with an educational polo from [employer]. Thrive Questionnaire Date Thrive assessed: 02/28/24 I am a: Patient What is your living situation today?: I have a steady place to live Within the past 12 months, did the food you bought not last and you didn't have the money to get more?: Often true Within the past 12 months, did you worry whether your food would run out before you got money to buy more?: Often true Do you have trouble paying for medicines?: No Do you have trouble getting transportation to medical appointments?: No Do you have trouble paying your heating and electricity bill?: No Do you have trouble taking care of your child, family member or friend?: No Do you have trouble with day-to-day activities such as bathing, preparing meals, shopping, managing finances, etc.?: No Are you currently unemployed and looking for a job?: No Are you interested in more education?: No Please select the resources that you would like help with: None Currently or been in a relationship where the following occur: No concerns reported THRIVE Score: 2 AUDIT C Alcohol Use Questionnaire (AUDIT-C) 1. How often do you have a drink containing alcohol?: Never Total Score: 0 WIYL-7 AMB Questionnaire WILY-7 Date WILY - 7 assessed: 08/24/23 Feeling nervous, anxious, or on edge: 0 = Not at all Not being able to stop or control worryin = Not at all Worrying too much about different things: 0 = Not at all Trouble relaxin = Not at all Being so restless that it is hard to sit still: 0 = Not at all Becoming easily annoyed or irritable: 0 = Not at all Feeling afraid as if something awful might happen: 0 = Not at all Total WILY-7 score (0-4 normal; 5-9 mild; 10-14 moderate; 15-21 severe): 0 Source: Developed by Drs. Werner Alvarez, Flaco Graham and colleagues, with an educational polo from [employer]. Review of Systems Const Denies headache(s) Eyes Denies loss of vision ENT Denies vertigo, Denies dizziness, Denies headache(s) and Denies sore throat Card Denies chest pain, Denies leg edema and Denies lightheadedness Resp Denies cough, Denies hemoptysis and Denies wheezing GI Denies abdominal pain, Denies melena, Denies constipation, Denies diarrhea and Denies vomiting Denies dysuria, Denies urinary frequency and Denies urinary urgency Musc Reports arthralgias (left shoulder), Denies joint swelling, Denies numbness and Denies tingling Neuro Denies Abnormal speech present, Denies behavioral changes, Denies vertigo, Denies dizziness, Denies headache(s), Denies loss of vision, Denies memory loss, Denies numbness and Denies tingling Psych Denies anxiety, Denies behavioral changes, Denies depression, Denies memory loss and Denies panic attacks Hussein/Lymph Denies easy bleeding and Denies easy bruising Aller/Immun Denies wheezing Physical exam (Primary Care) Vital Signs: Last Vital Signs Temp 97.3 F 03/03/25 14:15 Pulse 68 03/03/25 14:15 Resp 18 03/03/25 14:15 BP 130/60 03/03/25 14:15 Pulse Ox 94 03/03/25 14:15 Oxygen Delivery Method Room Air 03/03/25 14:15 BMI result Body Mass Index 29.0 Tobacco/Smoking Status: Tobacco use Status Tobacco use date assessed 03/03/25 03/03/25 14:22 Patient Tobacco Use Status Never used Tobacco 03/03/25 14:22 Tobacco use type Cigarette 03/03/25 14:22 e-Cigarette/Vaping Use Never Used 03/03/25 14:22 PHQ-9: PHQ-9 Score PHQ-9: Total score 0 03/04/25 22:17 Thrive Assessment: Date of Thrive Assessment Date Thrive assessed 02/28/24 03/03/25 14:22 Currently or been in a relationship where the following occur: No concerns reported Const General: healthy appearing, no acute distress, alert and awake Nutritional Appearance: well nourished Orientation/consciousness: oriented to person, oriented to place and oriented to time [facility] Head: Yes normal to inspection Ears: TM's normal bilaterally General nose exam: Normal nasal mucous membranes and turbinates present Eyes Conjunctivae: conjunctivae normal Sclerae: sclerae normal Pupils: Equal, round and reactive pupils present Neck Neck: Yes no lymphadenopathy and Yes no JVD Thyroid: Thyroid normal Carotids: no bruits Resp Effort & Inspection: normal respiratory effort and not tachypneic Auscultation: no crackles, no rales, no rhonchi and no wheezes Cardio Rate: regular rate Rhythm: regular rhythm Heart sounds: no murmurs and normal S1 and S2 GI Palpation (GI): Soft to palpation, nontender, no hepatomegaly and no splenomegaly Auscultation: normal bowel sounds General: Yes no CVA tenderness Back/Spine/Pelvis Back: no CVA tenderness Cervical Spine: No Cervical spine tenderness Thoracic/Lumbar Spine: No thoracic spinal tenderness and No lumbar spinal tenderness Skin General skin exam: no rashes or lesions noted and dry skin Neuro General: oriented to person, oriented to place and oriented to time Cranial nerves: Yes Equal, round and reactive pupils present Speech: No Abnormal speech present Gait exam (Neuro): Normal gait present Motor exam (neuro): no tremor noted Extrem Right upper extremity: full ROM Left upper extremity: full ROM Right lower extremity: full ROM; no edema Left lower extremity: full ROM; no edema Psych Mental Status: mental status grossly normal Speech and movement: Normal speech and movement present Affect: normal affect Attitude: cooperative Thought process: Normal thought process present Coding Level of Care Code Est Pt Prev Care >65y(34035) Diagnoses Physical exam Z00.00 Hyperlipidemia, unspecified hyperlipidemia type E78.5 Hyperlipidemia type: unspecified Elevated alanine aminotransferase (ALT) level R74.01 Overweight (BMI 25.0-29.9) E66.3 Time Spent (min) 39 Assessment & Plan Assessment & Plan (1) Physical exam: Code(s): Z00.00 - Encounter for general adult medical examination without abnormal findings Category: Medical Plan: Preventative guidelines reviewed with the patient. No recent labs, order placed for the patient to complete as soon as possible. The patient has undergone a colonoscopy in the past, which was normal, and is due for another in 2025. The patient maintains regular eye exams and is due for his next appointment around [facility].The patient has received four to five COVID-19 vaccinations and plans to get another soon. (2) HLD (hyperlipidemia): Code(s): E78.5 - Hyperlipidemia, unspecified Category: Medical Qualifiers: Hyperlipidemia type: unspecified Qualified Code(s): E78.5 - Hyperlipidemia, unspecified Plan: The patient has elevated triglycerides noted in previous blood work. He has been advised to reduce intake of sweet and processed foods and to consider fish oil supplements. Lipid panel ordered to further evaluate. (3) Elevated alanine aminotransferase (ALT) level: Code(s): R74.01 - Elevation of levels of liver transaminase levels Category: Medical Plan: Limit alcohol/drugs containing Tylenol or acetaminophen/fatty foods intake CMP ordered to further evaluate (4) Overweight (BMI 25.0-29.9): Code(s): E66.3 - Overweight Category: Medical Plan: Discussed lifestyle modifications including dietary changes and physical activity to aid in weight loss Orders: Orders Comprehensive [place]. Panel Fast 03/04/25 E66.9 - Obesity, unspecified, K64.4 - Residual hemorrhoidal skin tags, Z00.00 - Encounter for general adult medical examination without abnormal findings UA CC w/rflx Micro + Cult 03/04/25 E66.9 - Obesity, unspecified, K64.4 - Residual hemorrhoidal skin tags, Z00.00 - Encounter for general adult medical examination without abnormal findings TSH reflex Free T4 03/04/25 E66.9 - Obesity, unspecified, K64.4 - Residual hemorrhoidal skin tags, Z00.00 - Encounter for general adult medical examination without abnormal findings Hepatitis A,B,C Profile 03/04/25 R74.01 - Elevation of levels of liver transaminase levels Complete Blood Count Auto Diff 03/04/25 E66.9 - Obesity, unspecified, K64.4 - Residual hemorrhoidal skin tags, Z00.00 - Encounter for general adult medical examination without abnormal findings Lipid Panel 03/04/25 E66.9 - Obesity, unspecified, K64.4 - Residual hemorrhoidal skin tags, Z00.00 - Encounter for general adult medical examination without abnormal findings Vitamin D 25-OH Total 03/04/25 E66.9 - Obesity, unspecified, K64.4 - Residual hemorrhoidal skin tags, Z00.00 - Encounter for general adult medical examination without abnormal findings PSA,Total (Free>4and<10) 03/04/25 E66.9 - Obesity, unspecified, K64.4 - Residual hemorrhoidal skin tags, Z00.00 - Encounter for general adult medical examination without abnormal findings Ferritin 03/04/25 R74.01 - Elevation of levels of liver transaminase levels Prothrombin Time INR 10/07/25 R74.01 - Elevation of levels of liver transaminase levels
[2025-03-03 14:15] VITALS: BP 130/60; PULSE 68; RESP 18; TEMP 36.3; O2SAT 94; BMI 29.0
--- OUTSIDE RECORDS SUMMARY | 2025-03-03 16:45 | XMS_ITS | Patient Health Record ---
Author Organization [facility] Address [address] [place] [address] Care Team Providers Care Veneer Grader Name Role Phone Quita FALL, Lefty Primary Care Provider Unavaila ble Kassie Saldivar Unavailable [phone] Reason For Referral No Information Medications Medication SIG (Take, Route, Fr equency, Duration) Notes Start Date End Date Status Doxycycline Hyclate Not-Taking Problems No Known Problems Plan Of Treatment Pending Test Test Name Order Date [id number] NAIL, 6 OR MORE 01/23/2012 [id number]-Ndgm Destruction, 06-1101/23/2012 18811-Bxsa Destruction, 06-1104/04/2011 64357-Uivg Destruction, 06-1107/04/2011 14514-Rzbl Destruction, 06-1105/05/2014 31690-Ogph Destruction, 06-1101/05/2015 65318-Qlqv Destruction, 06-1105/11/2015 29733-Tuur Destruction, 06-1108/03/2015 33232-Bvoi Destruction, 06-1109/04/2014 42653-Nkob Destruction, 06-1110/03/2011 22927-Yaom Destruction, 06-1107/23/2012 10779-Bfzz Destruction, 06-1101/06/2014 73814-Sspr Destruction, 06-1110/15/2012 13940-Abnf Destruction, 06-1104/23/2012 66748-Logkcgoo Plate 01/06/2014 25483-Slivrlpe Plate 09/09/2013 94716-Ayculsax Plate 01/14/2013 96900-Bfhhofic Plate 10/03/2011 49173-Cacvylry Plate 05/13/2013 67413-Kffzpvqr Plate Each Additional 88533- Debride <25 sq cm 09/09/2013 Insurance Providers Payer Name Payer Address Payer Phone Subscriber Number Group Number Insured Name Patient Relationship to Insured Coverage Start Date Coverage End Date [employer] [address] DION Agarwal [id number] Giles Donaldson Self - patient is the insured Medical (General) History Medical History History ICD Code prostate cancer Surgical History Surgery Date(Month/Year) cholecystectomy 2001 prostate surgery 2008
--- OUTSIDE RECORDS SUMMARY | 2025-03-03 16:45 | XMS_ITS | Patient Health Record ---
Author Organization [facility] Address [address] [place] [id number] Care Team Providers Care Catalogue And Special Products Manager Name Role Phone Werner Johnson Unavailable [phone] Reason For Referral No Information Plan Of Treatment No Information
== END 2025-03-03 15:28 | disposition home or self-care (01) ==
LOC: HO.HMCH 14:12
PROVIDERS: PCP Internal Medicine
DX: Z00.00 Encounter for general adult medical examination without abnormal findings (principal); E78.5 Hyperlipidemia, unspecified; R74.01 Elevation of levels of liver transaminase levels; E66.3 Overweight

== ENCOUNTER → 2025-03-03 14:11 | Outpatient (BNVA) | payer MEDICARE, SELFPAY | PROVIDERS: PCP Internal Medicine | DX: Z00.00 Encounter for general adult medical examination without abnormal findings (principal); M25.512 Pain in left shoulder; E78.5 Hyperlipidemia, unspecified; R74.01 Elevation of levels of liver transaminase levels; E66.3 Overweight; Z68.29 Body mass index [BMI] 29.0-29.9, adult | CPT/HCPCS: 96127; 99397 ==

== ENCOUNTER 2025-03-04 11:17 | Outpatient (REF) | payer MEDICARE, SELFPAY ==
[2025-03-04 11:39] LABS: MANUAL DIFF FLAG NO
[2025-03-04 11:55] LABS: Hematocrit 47.5 % (42.0-52.0); Hemoglobin 16.3 g/dl (14.0-18.0); Imm Gran Abs Auto 0.03 X10*3/uL (0.00-0.03); Imm Gran Pct Auto 0.5 % (0.0-0.4); Lymphocytes Absolute Auto 1.9 X10*3/uL (1.2-4.9); Mean Corpuscular HGB Conc 34.3 g/dl (31.0-36.0); Mean Corpuscular Hemoglobin 31.7 pg (27.0-33.0); Mean Corpuscular Volume 92.4 fL (80.0-98.0); NRBC Abs Auto 0.000 X10*3/uL (0.0-0.012); NRBC Pct Auto 0.0 /100WBC (0.0-0.2); Platelet Count 216 X10*3/uL (160-400); Red Blood Count 5.14 X10*6/uL (4.60-5.80); White Blood Count 6.3 X10*3/uL (4.8-10.8)
[2025-03-04 11:59] LABS: INTERNATIONAL NORM RATIO 1.0 (0.9-1.1); Prothrombin Time 11.7 SEC (10.9-12.4)
[2025-03-04 12:29] LABS: Alanine Aminotransferase 42 U/L (0-40); Albumin Level 4.4 g/dL (3.5-5.0); Alkaline Phosphatase 73 U/L (39-117); Anion Gap 12 (12-20); Aspartate Amino Transferase 34 U/L (5-37); Blood Urea Nitrogen 21 mg/dL (9-16); Calcium 9.1 mg/dL (8.4-10.2); Carbon Dioxide 25 mmol/L (22-29); Chloride 108 mmol/L (96-108); Cholesterol 154 mg/dL (<200); Estimated Glomerular Filt Rate > 60; HDL Cholesterol 32 mg/dL (>40); Potassium 4.2 mmol/L (3.3-5.1); Sodium 141 mmol/L (135-145); Total Protein 7.7 g/dL (6.5-8.0); Triglycerides 107 mg/dL (<150)
[2025-03-04 12:33] LABS: Appearance Urine Clear; Glucose Urine UA Negative (Negative); PH 5.0 (5.0-9.0); Specific Gravity - Urine 1.025 (1.005-1.025)
[2025-03-04 12:48] LABS: Ferritin 219 ng/mL (20-250)
[2025-03-04 12:49] LABS: HBS Num1 0.00 mIU/mL (0-7.99); HBc Num1 0.11 S/CO (0.00-0.79); HBsAGNum1 0.32 S/CO (0.00-0.99); Hepatitis A Antibody IgM 0.53 Index (0-0.79); Hepatitis B Surface Antigen Negative (Negative); ~HepC Num1 0.09 S/CO (0.00-0.79); ~Hepatitis A Antibody IgM Nonreactive (Nonreactive); ~Hepatitis B Surface Antibody NONREACTIVE (Nonreactive); ~Hepatitis C Antibody Nonreactive (Nonreactive)
[2025-03-04 12:55] LABS: PSA,Total (Free>4and<10) < 0.10 ng/mL (0.00-4.00)
--- OUTSIDE RECORDS SUMMARY | 2025-03-04 14:13 | XMS_ITS | Patient Health Record ---
Author Organization [facility] Address [address] [place] [address] Care Team Providers Care [place] Stayer Machine Operator Name Role Phone Quita FALL, Lefty Primary Care Provider Unavaila ble Kassie Saldivar Unavailable [phone] Reason For Referral No Information Medications Medication SIG (Take, Route, Fr equency, Duration) Notes Start Date End Date Status Doxycycline Hyclate Not-Taking Problems No Known Problems Plan Of Treatment Pending Test Test Name Order Date [id number] NAIL, 6 OR MORE 01/23/2012 89605-Laeo Destruction, 06-1101/23/2012 54525-Ldpr Destruction, 06-1104/23/2012 25021-Praq Destruction, 06-1107/23/2012 46999-Ukev Destruction, 06-1110/15/2012 67244-Hvro Destruction, 06-1104/04/2011 96353-Wglp Destruction, 06-1107/04/2011 53117-Jnrm Destruction, 06-1110/03/2011 60343-Rknr Destruction, 06-1101/06/2014 17027-Anda Destruction, 06-1105/05/2014 67296-Wtbt Destruction, 06-1109/04/2014 04497-Yrlf Destruction, 06-1101/05/2015 36796-Hjkf Destruction, 06-1105/11/2015 29588-Zesn Destruction, 06-1108/03/2015 42220-Zltdbmxg Plate 01/06/2014 38106-Texkhuom Plate 05/13/2013 42070-Nikphmre Plate 09/09/2013 88057-Julzvsag Plate 10/03/2011 27824-Xzfacipc Plate 01/14/2013 85005-Jdpzzyei Plate Each Additional 44066- Debride <25 sq cm 09/09/2013 Insurance Providers Payer Name Payer Address Payer Phone Subscriber Number Group Number Insured Name Patient Relationship to Insured Coverage Start Date Coverage End Date [employer] [address] DION Agarwal [id number] Giles Donaldson Self - patient is the insured Medical (General) History Medical History History ICD Code prostate cancer Surgical History Surgery Date(Month/Year) cholecystectomy 2001 prostate surgery 2008
--- OUTSIDE RECORDS SUMMARY | 2025-03-04 14:13 | XMS_ITS | Patient Health Record ---
[facility] Organization [facility] Address [address] [place] [id number] Care Team Providers Care Nutrition Specialist Name Role Phone Werner Johnson Unavailable [phone] Reason For Referral No Information Plan Of Treatment No Information
== END 2025-03-04 11:18 | disposition home or self-care (01) ==
LOC: HO.LAB 11:17
DX: Z00.00 Encounter for general adult medical examination without abnormal findings (principal); K64.4 Residual hemorrhoidal skin tags; R74.01 Elevation of levels of liver transaminase levels; E66.9 Obesity, unspecified; Z12.5 Encounter for screening for malignant neoplasm of prostate; Z13.29 Encounter for screening for other suspected endocrine disorder
CPT/HCPCS: 36415; 80053; 80061; 81003; 82306; 82728; 84153; 84443; 85025; 85610; 86704; 86706; 86709; 86803; 87340